=== PATIENT | male | born 1970 | race Caucasian/White ===

== ENCOUNTER 2016-05-21 16:50 | Emergency (ER) | payer BC ==
[2016-05-21 17:01] VITALS: BP 127/97; PULSE 65; TEMP 98.1; BMI 27.3
[2016-05-21] MEDS ORDERED: DIPHTH,PERTUSS(ACELL),TET VAC 0.5 ML VIAL IM ONE (17:12)
--- NOTE | 2016-05-21 17:12 | PDOC ---
History of Present Illness <Shauna Minor - Last Filed: 05/21/16 17:12> - History of Present Illness Initial Comments: 05/21/16 17:18 The patient is a 45 year old male with a past medical history of paroxysmal A- fib, presents to the emergency department with a complaint of left thumb laceration sustained just prior to arrival. Patient was installing sonu when he accidentally cut his left thumb with a razor. Patient had initially ran water over the laceration and wrapped it with a towel. Patient denies any numbness or tingling to the thumb. Patient reports pain top the thumb described as a throbbing. Patient reports no other injuries. Patient is currently employed as a supervisor intermediates in [employer] Denies tobacco, drugs. Reports drinking one beer. 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) HTN: Yes - Psycho/Social/Smoking Cessation Hx Anxiety: No Suicidal Ideation: No Smoking History: Never smoked Hx Alcohol Use: Yes (social) Drug/Substance Use Hx: No Substance Use Type: None <Shauna Minor - Last Filed: 05/21/16 17:12> <Merlin Barillas - Last Filed: 05/21/16 17:19> - Past Medical History Allergies/Adverse Reactions: Allergies Allergy/AdvReac Type Severity Reaction Status Date / Time No Known Drug Allergies Allergy Unknown none Verified 05/21/16 16:53 Home Medications: Ambulatory Orders Ramipril [Altace] 5 mg PO DAILY #0 capsule 08/26/15 Sotalol HCl [Betapace -] 80 mg PO BID #0 tablet 08/26/15 Review of Systems - Review of Systems Comments:: 05/21/16 17:18 GENERAL/CONSTITUTIONAL: No fever or chills. No weakness. MUSCULOSKELETAL: No joint or muscle swelling or pain. No neck or back pain. SKIN: Yes: laceration to left thumb No rash NEUROLOGIC: No headache, vertigo, loss of consciousness, or change in strength/ sensation. <Merlin Barillas - Last Filed: 05/21/16 17:19> *Physical Exam - Vital Signs Last Vital Signs Temp Pulse Resp BP Pulse Ox 98.1 F 65 18 127/97 98 05/21/16 16:50 05/21/16 16:50 05/21/16 16:50 05/21/16 16:50 05/21/16 16:50 <Shauna Minor - Last Filed: 05/21/16 17:12> - Vital Signs Last Vital Signs Temp Pulse Resp BP Pulse Ox 98.1 F 65 18 127/97 98 05/21/16 16:50 05/21/16 16:50 05/21/16 16:50 05/21/16 16:50 05/21/16 16:50 - Physical Exam Comments: 05/21/16 17:18 GENERAL: Awake, alert, and fully oriented, in no acute distress EXTREMITIES: Left thumb, 1.5 cm laceration to the just medial to the nail bed. Mid portion of the wound is deep, the two extreme ends are superficial. Remained of extremities show normal range of motion, no edema. No clubbing or cyanosis. No cords, erythema, or tenderness NEUROLOGICAL: No focal deficits SKIN:Refer to the extremity portion, otherwise Warm, Dry, normal turgor, no rashes <Merlin Barillas - Last Filed: 05/21/16 17:19> Procedures - Laceration/Wound Repair Left 1st digit Hand Wound Length: to 2.5 cm Wound Explored: clean Wound's Depth, Shape: superficial, stellate Irrigated w/ Saline: Yes Anesthesia: 1% Lidocaine Amount of Anesthetic (ccs): 1 Wound Repaired With: Sutures, Dermabond Suture Size/Type: 5:0 (proline) Number of Sutures: 1 Layer Closure: No Sterile Dressing Applied: Yes Progress: 05/21/16 17:13 The middle portion of the wound was deep, the remainder followed the edge of the nailbed and was superficial. Suture was placed in the deep portion of the wound. The portion following the nailbed was sealed with dermabond, as this is less traumatic to the nailbed, and that portion of the wound was superficial. Dermabond also applied to the distal portion of the wound- too superficial to suture, but was oozing blood slightly. <Shauna Minor - Last Filed: 03/06/17 17:12> *DC/Admit/Observation/Transfer - Discharge Dispostion Admit: No <Shauna Minor - Last Filed: 05/21/16 17:12> - Attestations Scribe Attestion: 05/21/16 17:19 Documentation prepared by Merlin Barillas, acting as medical sociologist for Shauna Minor MD <Merlin Barillas - Last Filed: 05/21/16 17:19> Diagnosis at time of Disposition: Laceration of thumb, left Qualifiers: Encounter type: initial encounter Qualified Code(s): S61.012A - Laceration without foreign body of left thumb without damage to nail, initial encounter - Discharge Dispostion Disposition: HOME Condition at time of disposition: Stable - Referrals Referrals: Ce Hearn MD [Primary Care Provider] - - Patient Instructions Printed Discharge Instructions: DI for Laceration Repair, DI for Laceration Repair With Dermabond Additional Instructions: RETURN TO THE ER BETWEEN 05/30-06/01 TO HAVE THE STITCH REMOVED. RETURN IMMEDIATELY IF ANY REDNESS, SWELLING, FEVER, OR DRAINAGE OF PUS. KEEP DRY FOR FIRST 48 HOURS, THEN IT IS OK TO GET IT WET. THE GLUE WILL FALL OFF ON ITS OWN. DO NOT APPLY ANY LOTIONS, CREAMS, OR SOAPS, OR IT MAY PEEL OFF PREMATURELY.
[2016-05-21] MEDS ORDERED: DIPHTH,PERTUSS(ACELL),TET 0.5 ML DISP.SYRIN IM ONE (17:39)
== END 2016-05-21 17:45 | disposition home or self-care (01) ==
LOC: FER 16:50
PROC: 3E0234Z Introduction of Serum, Toxoid and Vaccine into Muscle, Percutaneous Approach (ICD-10-PCS; principal; 2016-05-21)
PROC: 0HQGXZZ Repair Left Hand Skin, External Approach (ICD-10-PCS; 2016-05-21)
DX: S61.012A Laceration without foreign body of left thumb without damage to nail, initial encounter (principal); W26.0XXA Contact with knife, initial encounter; Y93.89 Activity, other specified; Y92.9 Unspecified place or not applicable; Y99.0 Civilian activity done for income or pay; I48.91 Unspecified atrial fibrillation; I10 Essential (primary) hypertension
CPT/HCPCS: 90715; 99283-25